=== PATIENT | male | born 1960 | race African-American/Black ===

== ENCOUNTER 2016-08-17 06:51 | Emergency (ER) | payer MEDICAID ==
[~2016-08-17] VITALS: Ht 182.9 cm; Wt 91.6 kg
[~2016-08-17 06:51] MED LIST: DICY10CA55 PO; LOP2C PO; PROM25TA5 PO; RANITAB8 PO
[2016-08-17 08:59] LABS: Basophils # (auto) 0.1 uL; Basophils % (auto) 0.7 % (0.0-2.0); Eosinophils # (auto) 0.2 uL; Eosinophils % (auto) 1.9 % (0.0-7.0); Hematocrit 44.5 % (41.0-53.0); Hemoglobin 14.5 g/dL (13.5-17.5); Lymphocytes # (auto) 3.1 uL; Lymphocytes % (auto) 28.2 % (10.0-50.0); Mean Corpuscular Hemoglobin 28.6 pg (28.0-32.0); Mean Corpuscular Hgb Conc. 32.5 g/dL (32.0-36.0); Mean Platelet Volume 9.6 fL (7.4-10.4); Monocytes # (auto) 0.8 uL; Monocytes % (auto) 7.6 % (0.0-12.0); Neutrophils # (auto) 6.7 uL; Neutrophils % (auto) 61.6 % (37.0-80.0); Platelet Count (auto) 224 10^3/uL (140-450); Red Cell Distribution Width 16.3 % (11.6-16.0); White Blood Cell 10.9 10^3/uL (4.4-10.8)
[2016-08-17 09:30] LABS: Alkaline Phosphatase 66 U/L (45-117); Anion Gap 7 (5-15); Aspartate Aminotransferase 21 U/L (15-37); Bilirubin, Total 0.4 mg/dL (0.2-1.0); Blood Urea Nitrogen 11 mg/dL (7-18); Carbon Dioxide 27 mmol/L (21-32); Chloride 112 mmol/L (98-107); GFR African American 90 mL/min; GFR Non-African American 74 mL/min; Glucose 93 mg/dL (74-106); Potassium 4.6 mmol/L (3.5-5.1); Sodium 146 mmol/L (136-145); Total Protein 8.2 g/dL (6.4-8.2)
[2016-08-17] MEDS ORDERED: MECLIZINE HCL 25 MG TAB PO ONE (11:00)
[2016-08-17 13:10] VITALS: BP 110/72
== END 2016-08-17 13:13 | disposition home or self-care (01) ==
LOC: ER 06:51
DX: R42 Dizziness and giddiness (principal); N40.0 Benign prostatic hyperplasia without lower urinary tract symptoms; F12.10 Cannabis abuse, uncomplicated
CPT/HCPCS: 36415; 71020; 80053; 83735; 84484; 85025; 93005; 94761; 99285; J8597

== ENCOUNTER 2016-10-16 09:25 | Emergency (ER) | payer MEDICAID ==
[~2016-10-16] VITALS: Ht 185.4 cm; Wt 91.2 kg
[2016-10-16 09:36] VITALS: BP 121/85
== END 2016-10-16 10:55 | disposition home or self-care (01) ==
LOC: ER 09:25
DX: M17.12 Unilateral primary osteoarthritis, left knee (principal); M11.262 Other chondrocalcinosis, left knee
CPT/HCPCS: 73562

== ENCOUNTER 2017-06-02 08:14 | Emergency (ER) | payer MEDICAID ==
[~2017-06-02] VITALS: Ht 182.9 cm; Wt 93.0 kg
[2017-06-02 10:10] LABS: Urine Bacteria NONE SEEN /hpf (None Seen); Urine Blood 2+ /uL (Negative); Urine Mucus FEW (None Seen); Urine Specific Gravity 1.028 (1.001-1.035); Urine WBC 4 /hpf (0 - 3)
[2017-06-02 13:18] VITALS: BP 123/83
[2017-06-02] MEDS ORDERED: KETOROLAC TROMETH 60MG/2ML VIAL IM ONE (13:30)
== END 2017-06-02 14:21 | disposition home or self-care (01) ==
LOC: ER 08:14
DX: M54.30 Sciatica, unspecified side (principal); G89.29 Other chronic pain; F12.10 Cannabis abuse, uncomplicated; Z79.899 Other long term (current) drug therapy
CPT/HCPCS: 74176; 81001; 93005; 96372; 99285; J1885

== ENCOUNTER 2017-06-05 08:12 | Emergency (ER) | payer MEDICAID, OTHER ==
[~2017-06-05] VITALS: Ht 182.9 cm; Wt 91.6 kg
[2017-06-05 08:38] VITALS: BP 124/75
== END 2017-06-05 09:30 | disposition home or self-care (01) ==
LOC: ER 08:12
DX: M48.061 Spinal stenosis, lumbar region without neurogenic claudication (principal); G89.29 Other chronic pain; M54.5 Low back pain; Z79.899 Other long term (current) drug therapy
CPT/HCPCS: 93005

== ENCOUNTER 2018-01-24 06:04 | Emergency (ER) | payer MEDICAID, OTHER ==
[~2018-01-24] VITALS: Ht 182.9 cm; Wt 91.2 kg
[2018-01-24] MEDS ORDERED: SODIUM CHLORIDE 0.9% 1,000 ML IV ONE (07:34)
[2018-01-24] MEDS ORDERED: LORazepam 2MG/ML-1ML VIAL IV ONE (07:45)
[2018-01-24] MEDS ORDERED: FUROSEMIDE 20 MG/2 ML VIAL IV ONE (07:45)
[2018-01-24] MEDS ORDERED: MECLIZINE HCL 25 MG TAB PO ONE (07:45)
[2018-01-24 07:51] LABS: Basophils # (auto) 0.1 uL; Basophils % (auto) 0.9 % (0.0-2.0); Eosinophils # (auto) 0.2 uL; Eosinophils % (auto) 1.9 % (0.0-7.0); Hematocrit 43.9 % (41.0-53.0); Hemoglobin 14.3 g/dL (13.5-17.5); Lymphocytes # (auto) 2.4 uL; Lymphocytes % (auto) 24.5 % (10.0-50.0); Mean Corpuscular Hemoglobin 29.2 pg (28.0-32.0); Mean Corpuscular Hgb Conc. 32.7 g/dL (32.0-36.0); Mean Corpuscular Volume 89.6 fL (80.0-100.0); Monocytes # (auto) 0.8 uL; Monocytes % (auto) 8.5 % (0.0-12.0); Neutrophils # (auto) 6.2 uL; Neutrophils % (auto) 64.2 % (37.0-80.0); Nucleated Red Blood Cells % 0.1 %; Platelet Count (auto) 194 10^3/uL (140-450); Red Cell Distribution Width 14.7 % (11.8-14.3); White Blood Cell 9.7 10^3/uL (4.4-10.8)
[2018-01-24 08:24] LABS: Albumin 3.8 g/dL (3.4-5.0); BUN/Creatinine Ratio 10.1; Bilirubin, Total 0.4 mg/dL (0.2-1.0); Calcium 8.6 mg/dL (8.5-10.1); Potassium 4.2 mmol/L (3.5-5.1); Total Protein 7.7 g/dL (6.4-8.2)
[2018-01-24 08:42] LABS: Urine Bacteria FEW /hpf (None Seen); Urine Blood 1+ /uL (Negative); Urine Mucus FEW (None Seen); Urine Specific Gravity 1.009 (1.001-1.035); Urine WBC 2 /hpf (0 - 3)
[2018-01-24 11:28] VITALS: BP 129/83
== END 2018-01-24 11:29 | disposition home or self-care (01) ==
LOC: ER 06:04
DX: H81.10 Benign paroxysmal vertigo, unspecified ear (principal); K21.9 Gastro-esophageal reflux disease without esophagitis; R42 Dizziness and giddiness
CPT/HCPCS: 36415; 80053; 81001; 83735; 84443; 85025; 93005; 96361; 96374; 96375; 99285; J1940; J2060; J8597

== ENCOUNTER 2018-08-18 11:27 | Emergency (ER) | payer OTHER ==
[~2018-08-18] VITALS: Ht 182.9 cm; Wt 91.2 kg
[2018-08-18 12:22] VITALS: BP 116/70
== END 2018-08-18 12:55 | disposition home or self-care (01) ==
LOC: ER 11:27
DX: H00.022 Hordeolum internum right lower eyelid (principal); K21.9 Gastro-esophageal reflux disease without esophagitis; F12.10 Cannabis abuse, uncomplicated

== ENCOUNTER 2018-09-25 06:31 | Emergency (ER) | payer OTHER ==
[~2018-09-25] VITALS: Ht 182.9 cm; Wt 91.6 kg
[2018-09-25 06:51] VITALS: BP 136/73
== END 2018-09-25 07:59 | disposition home or self-care (01) ==
LOC: ER 06:31
DX: H66.91 Otitis media, unspecified, right ear (principal); J03.90 Acute tonsillitis, unspecified; K21.9 Gastro-esophageal reflux disease without esophagitis

== ENCOUNTER → 2020-04-05 | Emergency (ER) | payer OTHER ==
[~2020-04-05] VITALS: Ht 182.9 cm; Wt 93.4 kg
[2020-04-05 23:56] VITALS: BP 95/60
== END | disposition home or self-care (01) ==
LOC: ER 23:32
DX: M47.9 Spondylosis, unspecified (principal); K21.9 Gastro-esophageal reflux disease without esophagitis
CPT/HCPCS: 72125; 72128; 82962

== ENCOUNTER 2022-06-26 15:36 | Emergency (ER) | payer OTHER ==
[~2022-06-26] VITALS: Ht 182.9 cm; Wt 91.1 kg
[2022-06-26 16:00] VITALS: BP 132/69
[2022-06-26] MEDS ORDERED: MELO7.5T9 PO (18:00)
[2022-06-26] MEDS ORDERED: KETO2CRE4 TOP (18:00)
== END 2022-06-26 18:22 | disposition home or self-care (01) ==
LOC: ER 15:36
DX: G89.18 Other acute postprocedural pain (principal); M25.562 Pain in left knee; B35.4 Tinea corporis; K21.9 Gastro-esophageal reflux disease without esophagitis; Z79.2 Long term (current) use of antibiotics; Z79.899 Other long term (current) drug therapy
CPT/HCPCS: 73562

== ENCOUNTER 2023-01-17 06:33 | Emergency (ER) | payer OTHER ==
[~2023-01-17] VITALS: Ht 182.9 cm; Wt 90.5 kg
[~2023-01-17 06:33] MED LIST changes: +KETO2CRE4 TOP; +MELO7.5T9 PO; +PROM25TA10 PO; -PROM25TA5 PO
[2023-01-17 07:08] LABS: Basophils # (auto) 0.1 10 ^3/uL (0-0.2); Basophils % (auto) 0.9 % (0.0-2.0); Eosinophils # (auto) 0.2 10 ^3/uL (0-0.8); Eosinophils % (auto) 2.2 % (0.0-7.0); Hematocrit 42.9 % (41.0-53.0); Hemoglobin 14.1 g/dL (13.5-17.5); Lymphocytes # (auto) 2.2 10 ^3/uL (0.4-5.4); Lymphocytes % (auto) 22.5 % (10.0-50.0); Mean Corpuscular Hemoglobin 29.5 pg (28.0-32.0); Mean Corpuscular Hgb Conc. 32.9 g/dL (32.0-36.0); Mean Corpuscular Volume 89.7 fL (80.0-100.0); Monocytes # (auto) 0.9 10 ^3/uL (0-1.3); Neutrophils # (auto) 6.5 10 ^3/uL (1.6-8.6); Neutrophils % (auto) 65.4 % (37.0-80.0); Nucleated Red Blood Cells % 0.1 %; Red Blood Cells 4.78 10^6/uL (4.5-5.90); Red Cell Distribution Width 15.3 % (11.8-14.3); White Blood Cell 9.9 10^3/uL (4.4-10.8)
[2023-01-17 07:30] LABS: Urine Bacteria NONE SEEN /hpf (None Seen); Urine Blood 2+ /uL (Negative); Urine Clarity Clear (Clear); Urine Color Yellow (Yellow); Urine Hyaline Cast FEW /lpf (0 - 2); Urine Mucus FEW (None Seen); Urine Protein, UAD TRACE (Negative); Urine Specific Gravity 1.024 (1.001-1.035); Urine Urobilinogen Normal (Negative); Urine WBC 3 /hpf (0 - 3); Urine pH 5.5 (5.0-8.0)
[2023-01-17] MEDS ORDERED: SODIUM CHLORIDE 0.9% 1,000 ML IV ONE (07:45)
[2023-01-17] MEDS ORDERED: KETOROLAC TROMETH 30 MG/ML 1ML VIAL IV ONE (07:45)
[2023-01-17 08:00] LABS: Potassium 4.2 mmol/L (3.5-5.1)
[2023-01-17 08:10] LABS: Albumin 3.8 g/dL (3.4-5.0); BUN/Creatinine Ratio 11.1 (10.0-20.0); Bilirubin, Total 0.4 mg/dL (0.2-1.0); Calcium 8.9 mg/dL (8.5-10.1); Total Protein 7.9 g/dL (6.4-8.2)
[2023-01-17 08:20] VITALS: PULSE 56; RESP 12; O2SAT 96
[2023-01-17] MEDS ORDERED: CYCL-838 PO (08:34)
[2023-01-17] MEDS ORDERED: TRAM50TA2 PO (08:34)
[2023-01-17] MEDS ORDERED: DICL50TA2 PO (08:34)
== END 2023-01-17 10:49 | disposition home or self-care (01) ==
LOC: ER 06:33
DX: N40.0 Benign prostatic hyperplasia without lower urinary tract symptoms (principal); R31.9 Hematuria, unspecified; M54.59 Other low back pain; R10.9 Unspecified abdominal pain; K21.9 Gastro-esophageal reflux disease without esophagitis; F12.90 Cannabis use, unspecified, uncomplicated; Z79.899 Other long term (current) drug therapy; Z98.890 Other specified postprocedural states
CPT/HCPCS: 36415; 74176; 80053; 81001; 85025; 96361; 96374; 99285; J1885; J7030

== ENCOUNTER 2023-08-24 08:40 | Emergency (ER) | payer OTHER ==
[~2023-08-24] VITALS: Ht 182.9 cm; Wt 87.7 kg
[~2023-08-24 08:40] MED LIST changes: +CYCL-838 PO; +DICL50TA2 PO; +TRAM50TA2 PO
[2023-08-24 08:43] VITALS: BP 126/82; TEMP 98.6
[2023-08-24 09:28] VITALS: PULSE 118; RESP 12; O2SAT 98
[2023-08-24] MEDS ORDERED: BENZ100C97 PO (09:39)
[2023-08-24] MEDS ORDERED: AUG875T PO (09:39)
[2023-08-24] MEDS ORDERED: ACET500T58 PO (09:39)
[2023-08-24] MEDS ORDERED: PROM1SOL4 PO (09:39)
[2023-08-24] MEDS ORDERED: AZIT-185 PO (09:39)
[2023-08-24] MEDS ORDERED: ZOFR4T PO (09:53)
[2023-08-24] MEDS: cefTRIAXone SOD 500 MG VL IM ONE (09:57)
[2023-08-24] MEDS: KETOROLAC TROMETH 30 MG/ML 1ML VIAL IM ONE (09:58)
[2023-08-24] MEDS: DexAMETHasone SOD PHOS 10MG/1ML VIAL INJ IM ONE (09:58)
== END 2023-08-24 10:07 | disposition home or self-care (01) ==
LOC: ER 08:40
DX: J18.9 Pneumonia, unspecified organism (principal); K21.9 Gastro-esophageal reflux disease without esophagitis; R07.89 Other chest pain
CPT/HCPCS: 71046; 96372; 99284; J0696; J1100; J1885

== ENCOUNTER 2023-08-25 16:27 | Inpatient (IN) | payer OTHER ==
[~2023-08-25] VITALS: Ht 182.9 cm; Wt 91.4 kg
[~2023-08-25 16:27] MED LIST changes: +ACET500T58 PO; +AUG875T PO; +AZIT-185 PO; +BENZ100C97 PO; +PROM1SOL4 PO; +ZOFR4T PO
[2023-08-25 16:59] LABS: Basophils # (auto) 0.1 10 ^3/uL (0-0.2); Basophils % (auto) 0.4 % (0.0-2.0); Eosinophils # (auto) 0 10 ^3/uL (0-0.8); Hematocrit 43.3 % (41.0-53.0); Hemoglobin 14.2 g/dL (13.5-17.5); Lymphocytes # (auto) 0.8 10 ^3/uL (0.4-5.4); Lymphocytes % (auto) 5.1 % (10.0-50.0); Mean Corpuscular Hemoglobin 28.7 pg (28.0-32.0); Mean Corpuscular Hgb Conc. 32.9 g/dL (32.0-36.0); Mean Corpuscular Volume 87.4 fL (80.0-100.0); Monocytes # (auto) 1.9 10 ^3/uL (0-1.3); Monocytes % (auto) 12.6 % (0.0-12.0); Neutrophils # (auto) 12.3 10 ^3/uL (1.6-8.6); Neutrophils % (auto) 81.9 % (37.0-80.0); Red Blood Cells 4.96 10^6/uL (4.5-5.90); Red Cell Distribution Width 14.9 % (11.8-14.3)
[2023-08-25 17:17] LABS: INR 1.04 (0.9-1.15); Partial Thromboplastin Time 31.9 SEC (24.5-34.5); Prothrombin Time 10.9 sec (9.3-11.8)
[2023-08-25 17:19] LABS: Alanine Aminotransferase 36 U/L (7-40); Alkaline Phosphatase 70 U/L (46-116); Anion Gap 4 (5-15); Aspartate Aminotransferase 45 U/L (13-40); BUN/Creatinine Ratio 17.1 (10.0-20.0); Blood Urea Nitrogen 20 mg/dL (9-23); Calcium 9.2 mg/dL (8.7-10.4); Carbon Dioxide 25 mmol/L (20-30); Chloride 108 mmol/L (98-107); Glucose 118 mg/dL (74-106); Potassium 4.2 mmol/L (3.5-5.1); Sodium 137 mmol/L (136-145)
[2023-08-25 17:20] LABS: Albumin 4.2 g/dL (3.2-4.8); Bilirubin, Total 0.2 mg/dL (0.2-1.0); Total Protein 7.5 g/dL (5.7-8.2)
[2023-08-25] MEDS: IPRATROPIUM BROM 0.5 MG/2.5ML INH SOL NEB ONE (19:35)
[2023-08-25] MEDS: ALBUTEROL SULF 2.5 MG/0.5ML(0.5%) NEB SOLN NEB ONE (19:35)
[2023-08-25 20:57] VITALS: PULSE 117; RESP 20; O2SAT 100
[2023-08-25] MEDS: SODIUM CHLORIDE 0.9% 1,000 ML IV ONE (21:07)
[2023-08-25] MEDS: ACETAMINOPHEN 500 MG TAB PO ONE (21:10)
[2023-08-25] MEDS: ONDANSETRON HCL 4 MG/2 ML VIAL IV ONE (21:10)
[2023-08-25] MEDS: cefTRIAXone 1GM/50ML D5W 50 ML IV ONE (21:10)
[2023-08-25] MEDS: AZITHROMYCIN 500MG/ 250ML 250 ML IV ONE (21:15)
[2023-08-25 21:57] LABS: COVID19 ANTIGEN SOFIA FIA NEGATIVE (NEGATIVE)
[2023-08-25 21:58] LABS: Rapid Influenza A Negative (Negative); Rapid Influenza B Negative (Negative)
[2023-08-25] MEDS ORDERED: MORPHINE SULFATE INJ 2 MG/ml SYRG IV PRN ×2 (22:30)
[2023-08-25] MEDS ORDERED: ACETAMINOPHEN 325 MG TAB PO PRN (22:30)
[2023-08-25] MEDS ORDERED: NITROGLYCERIN 0.4 MG SL TAB SL PRN (22:30)
[2023-08-26] VITALS (11 sets, daily range): BP systolic 101–115; BP diastolic 54–74; PULSE 73–97; RESP 14–20; TEMP 98.3–99.7; O2SAT 97–99
[2023-08-26] MEDS: TEMAZEPAM 15 MG CAP PO PRN (00:48)
[2023-08-26] MEDS ORDERED: TAMS-35 PO (01:54)
[2023-08-26] MEDS ORDERED: IBUP100S11 PO (01:55)
[2023-08-26] MEDS: PIPERACILLIN-TAZOB 3.375GM 100 ML IV SCH ×2 (02:10→08:47)
[2023-08-26 05:16] LABS: Urine Bacteria NONE SEEN /hpf (None Seen); Urine Blood 3+ /uL (Negative); Urine Clarity Clear (Clear); Urine Color Yellow (Yellow); Urine Mucus FEW (None Seen); Urine Protein, UAD 1+ (Negative); Urine Specific Gravity 1.027 (1.001-1.035); Urine WBC 4 /hpf (0 - 3)
[2023-08-26 06:05] LABS: Basophils # (auto) 0 10 ^3/uL (0-0.2); Basophils % (auto) 0.3 % (0.0-2.0); Eosinophils # (auto) 0 10 ^3/uL (0-0.8); Hematocrit 39.7 % (41.0-53.0); Lymphocytes % (auto) 7.9 % (10.0-50.0); Mean Corpuscular Hgb Conc. 32.6 g/dL (32.0-36.0); Monocytes # (auto) 1.7 10 ^3/uL (0-1.3); Monocytes % (auto) 13.5 % (0.0-12.0); Neutrophils # (auto) 10.1 10 ^3/uL (1.6-8.6); Neutrophils % (auto) 78.3 % (37.0-80.0); Nucleated Red Blood Cells % 0.1 %; Red Blood Cells 4.47 10^6/uL (4.5-5.90); Red Cell Distribution Width 14.9 % (11.8-14.3); White Blood Cell 12.9 10^3/uL (4.4-10.8)
[2023-08-26 06:20] LABS: Alanine Aminotransferase 55 U/L (7-40); Albumin 3.9 g/dL (3.2-4.8); Alkaline Phosphatase 64 U/L (46-116); Anion Gap 5 (5-15); Aspartate Aminotransferase 69 U/L (13-40); Bilirubin, Total 0.3 mg/dL (0.2-1.0); Blood Urea Nitrogen 14 mg/dL (9-23); Calcium 8.7 mg/dL (8.5-10.1); Carbon Dioxide 24 mmol/L (20-30); Chloride 107 mmol/L (98-107); Glucose 108 mg/dL (74-106); Potassium 4.1 mmol/L (3.5-5.1); Sodium 136 mmol/L (136-145); Total Protein 6.7 g/dL (5.7-8.2)
[2023-08-26] MEDS: ENOXAPARIN SOD 40 MG/0.4 ML SYRINGE SC SCH (08:42)
[2023-08-26] MEDS: ASCORBIC ACID 500 MG TAB PO SCH (08:43)
[2023-08-26] MEDS: ACETAMINOPHEN 325 MG TAB PO PRN (08:45)
[2023-08-26] MEDS: MULTIPLE VITAMIN TAB PO SCH (08:45)
[2023-08-26] MEDS: ZINC SULFATE 220mg CAP or TAB PO SCH (08:46)
[2023-08-26] MEDS ORDERED: ALBUTEROL SULF 2.5 MG/0.5ML(0.5%) NEB SOLN NEB PRN (12:30)
[2023-08-26] MEDS ORDERED: ONDANSETRON HCL 4 MG/2 ML VIAL IV PRN (12:45)
[2023-08-26] MEDS: HYDROcodone-ACET 5/325MG TAB PO PRN (13:16)
[2023-08-26] MEDS: PROMETHAZINE W/CODEINE 5 ML ORAL SYRUP PO PRN (14:28)
[2023-08-27] VITALS (9 sets, daily range): BP systolic 100–125; BP diastolic 62–71; PULSE 63–79; RESP 17–20; TEMP 98.1–100.1; O2SAT 96–99
[2023-08-27] MEDS: TAMSULOSIN HYDROCHLORIDE 0.4 MG CAP PO SCH (09:52)
[2023-08-27] MEDS: ENOXAPARIN SOD 100 MG/1 ML SYRINGE SC SCH (09:53)
[2023-08-27 09:54] LABS: Basophils # (auto) 0.1 10 ^3/uL (0-0.2); Basophils % (auto) 0.5 % (0.0-2.0); Eosinophils # (auto) 0.1 10 ^3/uL (0-0.8); Eosinophils % (auto) 0.7 % (0.0-7.0); Hematocrit 42.1 % (41.0-53.0); Hemoglobin 13.8 g/dL (13.5-17.5); Lymphocytes # (auto) 1.6 10 ^3/uL (0.4-5.4); Lymphocytes % (auto) 14.3 % (10.0-50.0); Mean Corpuscular Hemoglobin 28.6 pg (28.0-32.0); Mean Corpuscular Hgb Conc. 32.6 g/dL (32.0-36.0); Mean Corpuscular Volume 87.7 fL (80.0-100.0); Monocytes # (auto) 1.6 10 ^3/uL (0-1.3); Monocytes % (auto) 14.6 % (0.0-12.0); Neutrophils # (auto) 7.6 10 ^3/uL (1.6-8.6); Neutrophils % (auto) 69.9 % (37.0-80.0); Red Blood Cells 4.81 10^6/uL (4.5-5.90); Red Cell Distribution Width 14.9 % (11.8-14.3); White Blood Cell 10.8 10^3/uL (4.4-10.8)
[2023-08-27 10:25] LABS: Alanine Aminotransferase 59 U/L (7-40); Albumin 3.7 g/dL (3.2-4.8); Alkaline Phosphatase 68 U/L (46-116); Anion Gap 4 (5-15); Aspartate Aminotransferase 53 U/L (13-40); BUN/Creatinine Ratio 11.4 (10.0-20.0); Bilirubin, Total 0.4 mg/dL (0.2-1.0); Blood Urea Nitrogen 12 mg/dL (9-23); Calcium 8.8 mg/dL (8.7-10.4); Carbon Dioxide 25 mmol/L (20-30); Chloride 106 mmol/L (98-107); Glucose 140 mg/dL (74-106); Magnesium 2.3 mg/dL (1.6-2.6); Potassium 3.9 mmol/L (3.5-5.1); Sodium 135 mmol/L (136-145)
[2023-08-27 10:26] LABS: Total Protein 7.1 g/dL (5.7-8.2)
[2023-08-28] VITALS (9 sets, daily range): BP systolic 101–120; BP diastolic 64–80; PULSE 62–80; RESP 18–20; TEMP 36.6; O2SAT 95–98
[2023-08-28] MEDS: ENOXAPARIN SOD 40 MG/0.4 ML SYRINGE SC SCH (09:51)
[2023-08-28] MEDS ORDERED: DOXY-286 PO (16:16)
== END 2023-08-28 18:54 | disposition home or self-care (01) | DRG 137 ==
LOC: ER 16:27 → TELE 22:25 → TELE-WESTW 22:25
PROVIDERS: ADMIT Internal Medicine; ATTEND Nurse Practitioner
DX: J15.69 Pneumonia due to other Gram-negative bacteria (principal); I24.9 Acute ischemic heart disease, unspecified; J06.9 Acute upper respiratory infection, unspecified; N40.0 Benign prostatic hyperplasia without lower urinary tract symptoms; K21.9 Gastro-esophageal reflux disease without esophagitis; R74.01 Elevation of levels of liver transaminase levels; Z20.822 Contact with and (suspected) exposure to COVID-19; I07.1 Rheumatic tricuspid insufficiency; E11.9 Type 2 diabetes mellitus without complications; F12.90 Cannabis use, unspecified, uncomplicated; L29.9 Pruritus, unspecified; Z83.3 Family history of diabetes mellitus; Z87.891 Personal history of nicotine dependence; Z79.899 Other long term (current) drug therapy; Z79.4 Long term (current) use of insulin
CPT/HCPCS: 36415; 71045; 71275; 80053; 81001; 83605; 83735; 83880; 84484; 85025; 85379; 85610; 85730; 87040; 87426; 87804; 93005; 93306; 93970; 94640; G0378; J2405; J2543

== ENCOUNTER 2024-11-13 07:37 | Emergency (ER) | payer OTHER ==
[~2024-11-13] VITALS: Ht 182.9 cm; Wt 86.0 kg
[~2024-11-13 07:37] MED LIST changes: -ACET500T58 PO; -AUG875T PO; -AZIT-185 PO; -BENZ100C97 PO; -CYCL-838 PO; -DICL50TA2 PO; -DICY10CA55 PO; +DOXY-286 PO; +IBUP100S11 PO; -KETO2CRE4 TOP; -LOP2C PO; -MELO7.5T9 PO; -PROM1SOL4 PO; -PROM25TA10 PO; -RANITAB8 PO; +TAMS-35 PO; -TRAM50TA2 PO; -ZOFR4T PO
--- NOTE | 2024-11-13 07:53 | ED.PDOC ---
Back pain HPI HPI Comments 64 y/o M, presents to the ED for CC of neck and head pain. Patient states, he has been experiencing left cervical neck pain with associated head pain x1week. Patient reports, helping neighbors move and excessively twisting while trying to dodge cat that fell from above. Patient denies trauma, injury, or fall. No other symptoms or modifying factors present at this time. Time Seen by MD: 07:45 Primary Care Provider: JUANITO Reviewed Notes: Nurses Notes, Medications, Allergies Allergies: Coded Allergies: NO KNOWN ALLERGIES (Unverified , 04/23/10) Home Meds Active Scripts Doxycycline Hyclate (DOXYCYCLINE HYCLATE) 100 Mg Tab, 1 TAB PO BID for 7 Days, #14 TAB Prov:KUSHAL AMEZCUA [employer] CLINICAL NURSE SPECIALIST 08/28/23 Reported Medications Ibuprofen (Motrin) 100 Mg/5 Ml Ud, 800 MG PO PRN, UNIT 08/26/23 Tamsulosin Hcl (Flomax) 0.4 Mg Cap, 1 CAP PO DAILY, #30 CAP 11 Refills 08/26/23 Information Source: Patient Mode of Arrival: Ambulatory Timing: Weeks Duration: Since onset Location of Back pain: (L) Cervical Severity: Moderate Prehospital treatment: None Onset: Twisting History of: None Modifying Factors: Nothing Associated signs and symptoms: None Past Medical History PAST MEDICAL HISTORY: GERD Surgical History: Denies all surgeries Family History Family History: Reviewed,noncontributory to illness Social History Smoker: Non-Smoker Alcohol: Denies ETOH Use Drugs: Marijuana Lives In: Home Constitutional: denies: chills, diaphoresis, fatigue, fever, malaise, sweats, weakness, others EENTM: denies: blurred vision, double vision, ear bleeding, ear discharge, ear drainage, ear pain, ear ringing, eye pain, eye redness, hearing loss, mouth pain, mouth swelling, nasal discharge, nose bleeding, nose congestion, nose pain, photophobia, tearing, throat pain, throat swelling, voice changes, others Respiratory: denies: cough, hemoptysis, orthopnea, SOB at rest, shortness of breath, SOB with excertion, stridor, wheezing, others Cardiovascular: denies: chest pain, dizzy spells, diaphoresis, Dyspnea on exertion, edema, irregular heart beat, left arm pain, lightheadedness, palpitations, PND, syncope, others Gastrointestinal: denies: abdomen distended, abdominal pain, blood streaked bowels, constipated, diarrhea, dysphagia, difficulty swallowing, hematemesis, melena, nausea, poor appetite, poor fluid intake, rectal bleeding, rectal pain, vomiting, others Genitourinary: denies: burning, dysuria, flank pain, frequency, hematuria, incontinence, penile discharge, penile sore, pain, testicle pain, testicle swelling, urgency, others Neurological: denies: dizziness, fainting, headache, left sided numbness, left sided weakness, numbness, paresthesia, pre-existing deficit, right sided numbness, right sided weakness, seizure, speech problems, tingling, tremors, weakness, others Musculoskeletal: reports: neck pain, others (head pain); denies: back pain, gout, joint pain, joint swelling, muscle pain, muscle stiffness Integumetry: denies: bruises, change in color, change in hair/nails, dryness, laceration, lesions, lumps, rash, wounds, others Allergic/Immunocompromised: denies: Difficulty Healing, Frequent Infections, Hives, Itching, others Hematologic/Lymphatic: denies: anemia, blood clots, easy bleeding, easy bruising, swollen glands, others Endocrine: denies: excessive hunger, excessive sweating, excessive thirst, excessive urination, flushing, intolerance to cold, intolerance to heat, unexplained weight gain, unexplained weight loss, others Psychiatric: denies: anxiety, bipolar disorder, depression, hopeless, panic disorder, schizophrenia, sleepless, suicidal, others All Other Systems: Reviewed and Negative Physical Exam General Appearance: No Apparent Distress, Normal HEENT: Normal ENT Inspection, Pharynx Normal, TMs Normal Neck: Full Range of Motion, Non-Tender, Normal, Normal Inspection Respiratory: Chest Non-Tender, Lungs Clear, No Accessory Muscle Use, No Respiratory Distress, Normal Breath Sounds Cardiovascular: No Edema, No JVD, No Murmur, No Gallop, Normal Peripheral Pulses, Regular Rate/Rhythm Breast Exam: Deferred Gastrointestinal: No Organomegaly, Non Tender, No Pulsatile Mass, Normal Bowel Sounds, Soft Genitalia: Deferred Pelvic: Deferred Rectal: Deferred Extremities: No calf tenderness, Normal capillary refill, Normal inspection, Normal range of motion, Non-tender, No pedal edema Musculoskeletal : Location: Left Extremity Location: Shoulder (TTP) Apperance: Tenderness Neurologic: Alert, analysis tester II-XII nml as Tested, No Motor Deficits, Normal Affect, Normal Mood, No Sensory Deficits Cerebellar Function: Normal Reflexes: Normal Skin: Dry, Normal Color, Warm Lymphatic: No Adenopathy Was a procedure done? Was a procedure done?: No Back Pain Differential Dx Differential Diagnosis: Musculoskeletal Pain, Other (strain) Time of 1ST Reevaluation: 08:15 Reevaluation 1ST: Unchanged Patient Education/Counseling: Diagnosis, Treatment Family Education/Counseling: No Family Present Additional Information Previous visits reviewed: I discussed treatment and results with medical personnel and: patient Comprehensive systems review obtained and negative except for what is stated in the HPI. Departure 1 Departure Time of Disposition: 08:00 Impression: Primary Impression: Trapezius muscle strain Qualified Codes: S46.812A - Strain of other muscles, fascia and tendons at shoulder and upper arm level, left arm, initial encounter Disposition: HOME / SELF CARE / HOMELESS Condition: Good e-Prescriptions Hydrocodone-Acetaminophen (Hydrocodone Bitartrate/AC 5-325 mg) 1 Tab Tab 1 TAB PO Q8HP PRN for 3 Days, #9 TAB Prov: GOYO BOLAND MD 11/13/24 Cyclobenzaprine Hcl (Cyclobenzaprine Hcl) 10 Mg Tab 10 MG PO Q8HP PRN for 3 Days, #9 TAB Prov: GOYO BOLAND MD 11/13/24 Discharged With: Self Critical Care Note Critical Care Time?: No Stability Stability form required: No Heart Score Heart Score: Heart Score Response (Comments) Value History N/A 0 EKG N/A 0 Age N/A 0 Risk Factors N/A 0 Troponin N/A 0 Total 0 I personally scribed for GOYO BOLAND MD ([email or web address]) on 11/13/24 at 07:53. Electronically submitted by Clara Otero ([email or web address]). GOYO BOLAND MD Nov 13, 2024 07:53
[2024-11-13 07:54] VITALS: BP 137/62; PULSE 61; RESP 18; TEMP 97.5; O2SAT 95
[2024-11-13] MEDS ORDERED: CYCL-839 PO (08:01)
[2024-11-13] MEDS ORDERED: HYDR-4902 PO (08:01)
== END 2024-11-13 08:05 | disposition home or self-care (01) ==
LOC: ER 07:37
DX: S29.012A Strain of muscle and tendon of back wall of thorax, initial encounter (principal); M54.2 Cervicalgia; K21.9 Gastro-esophageal reflux disease without esophagitis; Z79.899 Other long term (current) drug therapy; W18.39XA Other fall on same level, initial encounter; Y93.89 Activity, other specified; Y92.89 Other specified places as the place of occurrence of the external cause; Y99.8 Other external cause status